=== PATIENT | male | born 1940 | race Caucasian/White ===

== ENCOUNTER → 2017-06-20 | Outpatient (CLI) | payer OTHER | LOC: FIMAGING 15:25 | PROVIDERS: ATTEND Internal Medicine | DX: J98.4 Other disorders of lung (principal); E11.9 Type 2 diabetes mellitus without complications; R53.83 Other fatigue; I50.9 Heart failure, unspecified; R09.02 Hypoxemia | CPT/HCPCS: 36415-PO; 93005-PO; 96372-PO; G0463-PO; J0696-PO ==

== ENCOUNTER → 2017-11-15 | Outpatient (CLI) | payer OTHER | LOC: BHFA 14:00 | PROVIDERS: ATTEND Internal Medicine Cardiovascular Disease | DX: I49.8 Other specified cardiac arrhythmias (principal) ==

== ENCOUNTER → 2018-01-11 | Outpatient (CLI) | payer OTHER | LOC: BHFA 14:30 | PROVIDERS: ATTEND Internal Medicine Cardiovascular Disease | DX: I49.3 Ventricular premature depolarization (principal) ==

== ENCOUNTER → 2018-03-13 | Outpatient (CLI) | payer OTHER | LOC: BHFA 14:00 | PROVIDERS: ATTEND Internal Medicine Cardiovascular Disease | DX: I49.3 Ventricular premature depolarization (principal) ==

== ENCOUNTER 2018-09-26 10:17 | Emergency (ER) | payer OTHER ==
--- NOTE | 2018-09-26 10:28 | EDPHY ---
H & P Time Seen by Provider: 09/26/18 10:28 HPI/ROS: CHIEF COMPLAINT: Neck pain HISTORY OF PRESENT ILLNESS: The patient presents the ED for evaluation of neck pain that began yesterday. He describes a midline neck pain without associated numbness or weakness. He has had a week history of fatigue and a mild cough. The patient did notice that his heart rate was increased today. The patient does wear oxygen at night. He denies any chest pain or difficulty breathing. He denies any fever. The patient denies any abdominal pain, asymmetric calf pain or swelling or other acute complaints. REVIEW OF SYSTEMS: A comprehensive 10 point review of systems is otherwise negative aside from elements mentioned in the history of present illness. Source: Patient Exam Limitations: No limitations - Medical/Surgical History Hx Asthma: Yes Hx Chronic Respiratory Disease: Yes Hx Diabetes: Yes Hx Cardiac Disease: Yes Hx Renal Disease: No Hx Cirrhosis: No Hx Alcoholism: No Hx HIV/AIDS: No Hx Splenectomy or Spleen Trauma: No Other PMH: DM2 COPD, sleep apnea, bronchiastas, PVD, HTN, Hypothyroid, Gout. - Social History Smoking Status: Former smoker - Physical Exam Exam: General Appearance: Alert, no distress Eyes: Pupils equal and round no pallor or injection ENT, Mouth: Mucous membranes moist Respiratory: There are no retractions, lungs are clear to auscultation Cardiovascular: Regular rate and rhythm Gastrointestinal: Abdomen is soft and nontender, no masses, bowel sounds normal Neurological: 5/5 strength noted all 4 extremities Skin: Warm and dry, no rashes Musculoskeletal: Neck is supple nontender Extremities: symmetrical, full range of motion Constitutional: Initial Vital Signs Temperature (C) 36.4 C 09/26/18 10:26 Heart Rate 107 H 09/26/18 10:26 Respiratory Rate 20 09/26/18 10:26 Blood Pressure 112/85 H 09/26/18 10:26 O2 Sat (%) 91 L 09/26/18 10:26 O2 Delivery Mode Room Air O2 (L/minute) 2 Allergies/Adverse Reactions: No Known Allergies Allergy (Verified 09/26/18 10:26) Home Medications: Medication Instructions Recorded Albuterol [Proventil Inhaler HFA 1 - 2 puffs IH Q4H PRN 05/11/16 (*)] Allopurinol [Allopurinol 300 MG 300 mg PO DAILY 05/11/16 (RX)] Atorvastatin Calcium [Lipitor 80 80 mg PO DAILY 05/11/16 mg] Cyanocobalamin [Vitamin B12 (*)] 1,000 mcg PO DAILY 05/11/16 Gabapentin [Neurontin 400 MG (*)] 400 mg PO BID 05/11/16 Levothyroxine [Synthroid 25 mcg 25 mcg PO DAILY06 05/11/16 (*)] glipiZIDE [Glipizide] 5 mg PO DAILY18 05/11/16 metFORMIN HCL [Glucophage 500 mg 1,000 mg PO BIDMEAL 05/11/16 (*)] Aspirin EC [Aspirin EC 325 mg (*)] 325 mg PO DAILY tab 12/23/17 Clopidogrel Bisulfate [Plavix (*)] 75 mg PO DAILY #90 tab 12/23/17 Furosemide [Lasix 20 MG (*)] 20 mg PO DAILY #60 tab 12/23/17 Lisinopril [Zestril 40 mg (*)] 40 mg PO DAILY #60 tab 12/23/17 Metoprolol Tartrate [Lopressor 25 25 mg PO DAILY AT 10AM #60 tab 12/23/17 mg (*)] levOFLOXACIN [Levaquin] 500 mg PO DAILY #10 tablet 09/26/18 Medical Decision Making - Diagnostics EKG Interpretation: EKG: Complete interpretation has been separately recorded in the [employer] archive. Summary impression: Sinus tachycardia, rate 117, PVC noted, nonspecific ST T wave changes noted Imaging Results: Imaging Impressions Chest/Thorax CTA 09/26/18 12:53 Impression: 1. Limited study without acute central or segmental pulmonary embolus. 2. Bibasilar consolidations, worse on the left, and increased in degree since 2016. There is debris within the left lower lobe bronchus. Differential includes atelectasis and/or aspiration pneumonia. Would recommend follow-up imaging until resolution. 3. Prominent bilateral hilar nodes are likely reactive. Findings and recommendations discussed with Joe Graf at 1401 hour, 09/26. ED Course/Re-evaluation: Patient presents to the ED for evaluation of acute neck pain for the past 2 days. The patient does have a history of coronary artery disease status post and is concerned about the possibility of referred pain from heart attack. Additionally the patient has had several day history of cough, fatigue and malaise. Patient did note slight increase in his oxygen requirement. He does have oxygen at home. Evaluation emergency department today consisted of an EKG which demonstrates a sinus tachycardia. The patient's evaluation included a D-dimer which was elevated. Given his complaints of dyspnea with slight tachycardia he was taken for CT scan of the chest which demonstrated no evidence of a PE but did demonstrate bilateral basilar infiltrates consistent with pneumonia. I re-evaluated the patient at 2:30 p.m.. I informed him of the clinical and radiographic diagnosis of pneumonia. The patient was offered admission to the hospital in the setting of his age, slight tachycardia and diagnosis of pneumonia however he is adamant about wanting to be discharged home. He is a competent decision maker. The patient has been informed that he can return to the emergency department at any time should he reconsider his decision not to be admitted to the hospital. He will follow up with his primary care provider for recheck next week. The patient will be discharged home with a 10 day prescription for Levaquin. Differential Diagnosis: Differential diagnosis considered includes acute coronary syndrome, pulmonary embolism, pneumonia, dehydration, metabolic derangement - Data Points Laboratory Results: Laboratory Results 09/26/18 12:05 09/26/18 12:05 09/26/18 09/26/18 09/26/18 12:11 12:05 12:05 WBC RBC Hgb Hct MCV MCH MCHC RDW Plt Count MPV Neut % (Auto) Lymph % (Auto) [place] % (Auto) Eos % (Auto) Baso % (Auto) Nucleat RBC Rel Count Absolute Neuts (auto) Absolute Lymphs (auto) Absolute Monos (auto) Absolute Eos (auto) Absolute Basos (auto) Absolute Nucleated RBC Immature Gran % Immature Gran # D-Dimer 1.37 ug/mLFEU H ug/mLFEU (0.00-0.50) Sodium 142 mEq/L mEq/L (135-145) Potassium 3.5 mEq/L mEq/L (3.5-5.2) Chloride 104 mEq/L mEq/L (97-110) Carbon Dioxide 28 mEq/l mEq/l (22-31) Anion Gap 10 mEq/L mEq/L (6-14) BUN 25 mg/dL H mg/dL (7-23) Creatinine 1.0 mg/dL mg/dL (0.7-1.3) Estimated GFR > 60 Glucose 113 mg/dL H mg/dL (70-100) Calcium 9.5 mg/dL mg/dL (8.5-10.4) POC Troponin I 0.00 ng/mL ng/mL (0.00-0.08) 09/26/18 12:05 WBC 18.67 10^3/uL H 10^3/uL (3.80-9.50) RBC 5.11 10^6/uL 10^6/uL (4.40-6.38) Hgb 14.4 g/dL g/dL (13.7-17.5) Hct 44.1 % % (40.0-51.0) MCV 86.3 fL fL (81.5-99.8) MCH 28.2 pg pg (27.9-34.1) MCHC 32.7 g/dL g/dL (32.4-36.7) RDW 15.5 % H % (11.5-15.2) Plt Count 236 10^3/uL 10^3/uL (150-400) MPV 12.7 fL H fL (8.7-11.7) Neut % (Auto) 85.4 % H % (39.3-74.2) Lymph % (Auto) 7.1 % L % (15.0-45.0) [place] % (Auto) 6.7 % % (4.5-13.0) Eos % (Auto) 0.2 % L % (0.6-7.6) Baso % (Auto) 0.2 % L % (0.3-1.7) Nucleat RBC Rel Count 0.0 % % (0.0-0.2) Absolute Neuts (auto) 15.95 10^3/uL H 10^3/uL (1.70-6.50) Absolute Lymphs (auto) 1.32 10^3/uL 10^3/uL (1.00-3.00) Absolute Monos (auto) 1.26 10^3/uL H 10^3/uL (0.30-0.80) Absolute Eos (auto) 0.03 10^3/uL 10^3/uL (0.03-0.40) Absolute Basos (auto) 0.04 10^3/uL 10^3/uL (0.02-0.10) Absolute Nucleated RBC 0.00 10^3/uL 10^3/uL (0-0.01) Immature Gran % 0.4 % % (0.0-1.1) Immature Gran # 0.07 10^3/uL 10^3/uL (0.00-0.10) D-Dimer Sodium Potassium Chloride Carbon Dioxide Anion Gap BUN Creatinine Estimated GFR Glucose Calcium POC Troponin I Point of Care Test Results: Chemistry 09/26/18 12:11 POC Troponin I 0.00 ng/mL ng/mL (0.00-0.08) Departure - Departure Disposition: Home, Routine, Self-Care Clinical Impression: Pneumonia Condition: Good Instructions: Pneumonia (ED) Additional Instructions: 1. Please take antibiotics as directed for next 10 days. 2. You have been offered admission to the hospital and declined. Please return to the ED for any worsening respiratory symptoms or other concerns. 3. Please schedule a follow-up appointment with your primary care provider for a recheck next week. Referrals: Srikanth Hartley MD [Primary Care Provider] - As per Instructions Prescriptions: levOFLOXACIN [Levaquin] 500 mg PO DAILY #10 tablet
--- NOTE | 2018-09-26 12:03 | CPEKG ---
Test Reason : OPEN Blood Pressure : / mmHG Vent. Rate : 119 BPM Atrial Rate : 246 BPM P-R Int : 239 ms QRS Dur : 090 ms QT Int : 339 ms P-R-T Axes : 134 -42 -60 degrees QTc Int : 478 ms Sinus tachycardia Ventricular premature complex Prolonged [place] interval Left axis deviation Nonspecific repol abnormality, lateral leads Confirmed by Joe Graf ([id number]) on 09/26/2018 12:03:08 PM Referred By: Joe Graf Confirmed By:Joe Graf
[2018-09-26 12:22] LABS: PLATELET COUNT 236 10^3/uL (150-400)
[2018-09-26] MEDS ORDERED: IOPAMIDOL (ISOVUE 370) 100 ML BTL IV ONE (13:09)
[2018-09-26] MEDS ORDERED: NS 1,000 ML IV ONE (14:10)
[2018-09-26 15:04] VITALS: BP 156/103
== END 2018-09-26 15:15 | disposition home or self-care (01) ==
DX: J18.9 Pneumonia, unspecified organism (principal); E86.9 Volume depletion, unspecified; J44.0 Chronic obstructive pulmonary disease with (acute) lower respiratory infection; I10 Essential (primary) hypertension; E11.9 Type 2 diabetes mellitus without complications; Z79.4 Long term (current) use of insulin
CPT/HCPCS: 71275; 93005; 96360; 99285; Q9967; 84484-ER

== ENCOUNTER 2018-12-12 07:59 | Observation (INO) | payer OTHER ==
[2018-12-12] MEDS ORDERED: NS 1,000 ML IV ONE (08:29)
[2018-12-12] MEDS ORDERED: LIDOCAINE 2% 2 ML INJ ONE (08:58)
[2018-12-12] MEDS ORDERED: PROPOFOL/EMULSION 500 MG/50 ML BOTTLE IV ONE ×2 (08:59)
[2018-12-12 09:01] LABS: PLATELET COUNT 171 10^3/uL (150-400)
[2018-12-12] MEDS ORDERED: HEPARIN 10,000 UNIT/10 ML MDV (1,000 UNIT/ML) ONE (09:03)
[2018-12-12] MEDS ORDERED: LIDOCAINE 1% 300 MG/30 ML SDV ONE (09:03)
[2018-12-12] MEDS ORDERED: BUPIVACAINE 0.75% 10 ML SDV ONE (09:04)
[2018-12-12 09:05] LABS: INR 1.38 (0.83-1.16); PROTIME(PATIENT) 16.4 SEC (12.0-15.0)
[2018-12-12] MEDS ORDERED: fentaNYL 100 MCG/2 ML INJ ONE (09:06)
[2018-12-12] MEDS ORDERED: ROCURONIUM 50 MG/5 ML VIAL ONE (09:06)
[2018-12-12] MEDS ORDERED: DEXAMETHASONE 4 MG/ML VIAL ONE (09:06)
[2018-12-12] MEDS ORDERED: ONDANSETRON 4 MG/2 ML VIAL ONE (09:06)
--- NOTE | 2018-12-12 09:12 | PDGENHP ---
History & Physical Chief Complaint: typical AFL History of Present Illness: typical AFL Relevant Physical Exam: A+Ox4, no focal deficits, regular tachycardia/no MRG, CTAB Cardiorespiratory Assessment: typical AFL -> GETA/JAZMINE/CTI abltaion
[2018-12-12] MEDS ORDERED: DESFLURANE 240 ML BOTTLE IH ONE (09:18)
[2018-12-12] MEDS ORDERED: PHENYLEPHRINE HCL 100 MCG/ML SYR ONE (10:04)
[2018-12-12] MEDS ORDERED: ePHEDrine SULFATE 25 MG/5 ML SYR ONE ×2 (10:04→10:40)
[2018-12-12] MEDS ORDERED: HYDROCODONE/APAP 5/325 TAB PO PRN (11:26)
[2018-12-12] MEDS ORDERED: ACETAMINOPHEN 325 MG TAB PO PRN (11:26)
--- NOTE | 2018-12-12 11:46 | EPPROC ---
Electrophysiology Procedure Note: Date: 12/12/2018 Stitch Cleaner: Bob Yanes MD Procedures: Comprehensive EP study and catheter ablation of SVT -74713 CS catheter placement/pacing -60840 3D electro anatomic mapping -88539 Transesophageal echo-[id number] Indications: 78-year-old male with typical atrial flutter. Techniques: Following informed consent, the patient was brought to the EP lab in a fasting nonsedated state, in typical atrial flutter rhythm. General anesthesia was provided by the anesthesiology service. Preprocedure transesophageal echocardiogram was performed, showing absence of left atrial appendage thrombus, and normal CTI anatomy (see formal report for full details) . Bilateral groins were prepped and draped in usual sterile fashion. 1% lidocaine was infiltrated over the right femoral vessels. Under ultrasound guidance, vascular access was obtained x2 in the right femoral vein with placement of 8 [place]ic and SR 0 sheaths. Under Carto guidance, a decapolar catheter was advanced to the CS. A Smart Touch SF ablation catheter was advanced to the right atrium. A Carto anatomic map of the right atrium, proximal CS was created. The his position was annotated (HV=42ms). Baseline rhythm was typical appearing atrial flutter, with CSp>d activation pattern, NQH=362pd. Entrainment was performed from the CTI-this showed concealed fusion and PPI-[id number], confirming typical CTI dependent atrial flutter. RF ablation was performed at 35 w power along the CTI. During ablation, there was slowing of the tachycardia cycle length, followed by flutter termination. Pacing was initiated from CS proximal bipole, and lateral RA mapping confirmed transisthmus block across the CTI. Differential pacing from the lateral RA confirmed bidirectional block. TIT= 223ms med-lat, 194ms lat-med. At the completion of the procedure, all catheters were removed. A temporary hemostasis suture was applied to the right groin access site, and sheaths were aspirated then removed; manual pressure was held until hemostasis. The patient tolerated the procedure well. EBL: Minimal Complications: None Assessment: Typical CTI dependent atrial flutter, status post successful CTI ablation Plan: Bedrest 6 hr Remove hemostasis suture at the completion of bedrest Resume Eliquis at the completion of bedrest, continue for 1 month at a minimum Right groin precautions for 10 days Patient Problems: Problems Problem Status Onset Chronic Disease Mgmt/Transitional Care Acute Diarrhea Acute Pain in lower limb Acute Pneumonia Acute
--- NOTE | 2018-12-12 16:58 | ECHO ---
[email or web address] [address] [address] Main: [phone] Echocardiography Examination Transesophageal Name: DANA HALEY MR#: [id number] Study Date: 12/12/2018 Study Time: 10:10 AM Date of : 1940 Age: 78 year(s) Height: ( ) Weight: ( ) BSA: Gender: Male Examination: JAZMINE Contrast: Image Quality: Rhythm: Heart Rate: BP: / Indication: Pre EP Procedure Staff Referring Physician: At Home Independent Call Center Agent: Finn Rowe RDCS Reading Physician: Guillermo Yanes MD Requesting Provider: Ordering Physician: Guillermo Yanes MD Indication: Pre EP Measurements Chambers TV/PV Label Value Normal Value Label Value Normal Value RA Pressure 5 mmHg RVSP 23 mmHg TR Pmax 18 mmHg TR Vmax 2.11 m/s Conclusions Left Atrium Appendage: No thrombus is identified. IAS: An agitated saline study was performed and was negative for intracardiac shunting. Findings Left Ventricle: The EF is visually estimated to be 45 %. Right Ventricle: Patient: DANA HALEY Study Date: 12/12/2018 Page 1 of 2 10:10 AM Right ventricular systolic function is mildly reduced. Left Atrium Appendage: There is a diminished PW-Doppler flow profile. Good color flow doppler in the left atrial appendage. No thrombus is identified. IAS: An agitated saline study was performed and was negative for intracardiac shunting. Mitral Valve: Mitral valve appears structurally normal. Mild mitral regurgitation. Aortic Valve: No significant aortic valve regurgitation. Aortic leaflets exhibit mild calcification. The aortic valve is trileaflet. Tricuspid Valve: Mild tricuspid regurgitation. Right Ventricular systolic pressure is measured at 23 mmHg. Pulmonic Valve: Pulmonic leaflets are normal in appearance and function. Aorta: Mild atheroma in the descending aorta. Pericardium: No pericardial effusion. Exam Details Procedure Ordered: JAZMINE (No Signature Object) Patient: DANA HALEY Study Date: 12/12/2018 Page 2 of 2 10:10 AM [id number]
[2018-12-12] MEDS: metFORMIN HCL 500 MG TAB PO SCH ×2 (17:34→18:28)
[2018-12-12] MEDS: APIXABAN 5 MG TAB PO SCH ×2 (17:34→20:27)
[2018-12-12] MEDS ORDERED: glipiZIDE 5 MG TAB PO SCH (18:00)
--- NOTE | 2018-12-12 19:40 | CPEKG ---
Test Reason : OPEN Blood Pressure : / mmHG Vent. Rate : 109 BPM Atrial Rate : 250 BPM P-R Int : 216 ms QRS Dur : 101 ms QT Int : 340 ms P-R-T Axes : 162 -45 -02 degrees QTc Int : 458 ms Atrial flutter LAD, consider left anterior fascicular block Confirmed by Terry Cuellar ([id number]) on 12/12/2018 7:39:55 PM Referred By: Guillermo Yanes Confirmed By:Terry Cuellar
--- NOTE | 2018-12-12 20:16 | CPEKG ---
Test Reason : OPEN Blood Pressure : / mmHG Vent. Rate : 081 BPM Atrial Rate : 082 BPM P-R Int : 167 ms QRS Dur : 098 ms QT Int : 401 ms P-R-T Axes : 077 003 019 degrees QTc Int : 466 ms Sinus rhythm Anteroseptal infarct, old Confirmed by Terry Cuellar ([id number]) on 12/12/2018 8:15:50 PM Referred By: Guillermo Yanes Confirmed By:Terry Cuellar
[2018-12-12] MEDS: GABAPENTIN 400 MG CAP PO SCH (20:27)
[2018-12-13 04:44] LABS: CREATINE KINASE 42 IU/L (0-224)
[2018-12-13] MEDS ORDERED: LEVOTHYROXINE 25 MCG TAB PO SCH (06:00)
[2018-12-13 07:12] VITALS: BP 140/73
[2018-12-13] MEDS: metFORMIN HCL 500 MG TAB PO SCH (08:38)
[2018-12-13] MEDS ORDERED: CLOPIDOGREL BISULFATE 75 MG TAB PO SCH (09:00)
[2018-12-13] MEDS ORDERED: METOPROLOL TARTRATE 25 MG TAB PO SCH (09:00)
[2018-12-13] MEDS ORDERED: ASPIRIN EC 325 MG TAB PO SCH (09:00)
[2018-12-13] MEDS ORDERED: ATORVASTATIN CALCIUM 40 MG TAB PO SCH (09:00)
[2018-12-13] MEDS ORDERED: FUROSEMIDE 20 MG TAB PO SCH (09:00)
[2018-12-13] MEDS ORDERED: LISINOPRIL 40 MG TAB PO SCH (09:00)
[2018-12-13] MEDS ORDERED: ALLOPURINOL 300 MG TAB PO SCH (09:00)
[2018-12-13] MEDS: GABAPENTIN 400 MG CAP PO SCH (09:48)
[2018-12-13] MEDS: APIXABAN 5 MG TAB PO SCH (09:48)
--- NOTE | 2018-12-13 10:01 | ASDISCHSUM ---
Discharge Information Plan Status:Home with No Needs Medically Cleared to Leave:12/13/2018 Discharge Date:12/13/2018 CM D/C Disposition:Home, Routine, Self-Care ADT D/C Disposition:Home, Routine, Self-Care Projected Discharge Date:12/13/2018 Transportation at D/C:Family Discharge Delay Reason: Follow-Up Date:12/13/2018 Discharge Slot: Final Diagnosis: Placement Information Patient Contact Information Contact Name:DEEPA Relationship: Address:[address] [place] [address] Work Phone: City:[place] [facility] Phone: State/Zip Code:[place] [address] Email: Financial Information Financial Class:Medicare Primary Plan Desc:MEDICARE OUTPATIENT Primary Plan Number:[id number] Secondary Plan Desc:AGNES Secondary Plan Number:[id number] Assessment Information LACE LACE Length of stay for Answers: Less than 1 day current admission Acuity / Level of Answers: No Care: Did the patient have an inpatient admission? Comorbidities - select Answers: Chronic pulmonary disease all that apply Diabetes (uncontrolled or controlled) Opioid dependence / Chronic pain Peripheral vascular disease Other Notes: HTN; Hypothyroid # of Emergency department Answers: 1-2 visits in the last 6 months Score: 10 Date Signed: 12/13/2018 10:00 AM Electronically Signed By:Betty Alvarez RN Intervention Information
--- NOTE | 2018-12-13 14:41 | GDS ---
[f rep st] DISCHARGE SUMMARY DISCHARGE DIAGNOSES: 1. Typical atrial flutter. 2. Ablation of atrial flutter. 3. Coronary artery disease. BRIEF HISTORY: This is an 78-year-old man with relatively newly diagnosed atrial flutter with ventricular rates up to 150 beats per minute. He also has a history of coronary artery disease with an LAD and circumflex stent placed about 1 year ago. He has a CHADS/VASc of 4 and is taking Eliquis. HOSPITAL COURSE: Dr. Yanes performed ablation of typical CTI-dependent atrial flutter without complications. The patient did well overnight. He has not had any arrhythmias other than PVCs. He has not had any chest pain, pressure, or tightness. No shortness of breath. His O2 saturation has come up and is 92% on room air at the time of discharge. TESTING DONE: JAZMINE demonstrated ejection fraction of 45%. No thrombus in left atrial appendage and mild MR. EKG demonstrates sinus rhythm with nonspecific ST -T wave changes. LAB WORK: WBC is 8.77, hemoglobin 13, hematocrit 40.8, platelets 171. Sodium is 138, potassium 4.3, chloride 95, bicarb 25, BUN 31, creatinine 1.0, glucose 125. CK is 42, troponin is 0.4. PHYSICAL EXAM: VITAL SIGNS: Blood pressure is 140/73, pulse is 67, respirations 10, temperature is 36.3, O2 saturation 92% on room air. GENERAL: He is alert and oriented, lying in bed, in no acute distress. CARDIAC: Regular rate and rhythm without a murmur, rub, or gallop. LUNGS: Clear to auscultation. ABDOMEN: Soft and nontender. GROIN SITE: Without bleeding or hematoma. One stitch was removed without problem. EXTREMITIES: Warm. No discoloration. No lower extremity edema. Bilateral +1 pedal pulses. DISCHARGE INSTRUCTIONS: Post ablation activity restrictions/groin precautions were reviewed verbally and given to him written at the time of discharge. He was given an incentive spirometer with instructions to use every 2 hours while awake for next few days. DISCHARGE MEDICATIONS: Please see discharge medication reconciliation. Of note , he has resumed Eliquis and will take that for at least 1 month or until followup. FOLLOWUP: On January [address] Yanes at 11:30. ADDENDUM Bob Yanes MD - Agree with Ms Oliva's assessment and plan. Uneventful postop observation status post catheter ablation of typical atrial flutter. /[id number]/MODL MTDD
--- NOTE | 2018-12-13 17:49 | CPEKG ---
Test Reason : OPEN Blood Pressure : / mmHG Vent. Rate : 067 BPM Atrial Rate : 068 BPM P-R Int : 159 ms QRS Dur : 104 ms QT Int : 545 ms P-R-T Axes : 079 -04 -73 degrees QTc Int : 576 ms Sinus rhythm Nonspecific T abnormalities, lateral leads Prolonged QT interval Confirmed by Terry Cuellar ([id number]) on 12/13/2018 5:48:55 PM Referred By: Guillermo Yanes Confirmed By:Terry Cuellar
== END 2018-12-13 11:37 | disposition home or self-care (01) ==
LOC: FCATH 07:59 → F2W 11:20
PROVIDERS: ADMIT Internal Medicine Cardiovascular Disease; ATTEND Internal Medicine Cardiovascular Disease
PROC: B245ZZ4 Ultrasonography of Left Heart, Transesophageal (ICD-10-PCS; principal; 2018-12-12)
PROC: 4A023FZ Measurement of Cardiac Rhythm, Percutaneous Approach (ICD-10-PCS; principal; 2018-12-12)
PROC: 02K83ZZ Map Conduction Mechanism, Percutaneous Approach (ICD-10-PCS; principal; 2018-12-12)
PROC: 02583ZZ Destruction of Conduction Mechanism, Percutaneous Approach (ICD-10-PCS; principal; 2018-12-12)
DX: I48.92 Unspecified atrial flutter (principal); I25.10 Atherosclerotic heart disease of native coronary artery without angina pectoris; Z95.5 Presence of coronary angioplasty implant and graft
CPT/HCPCS: 93005; 93312; 93613; 93621; 93653; C1730; C1732; C1893; J1100; J1644; J2370; J2405; J2704; J3010